=== PATIENT | male | born 1970 | race Caucasian/White ===

== ENCOUNTER 2017-07-02 19:17 | Inpatient (IN) | payer MEDICAID ==
[~2017-07-02] VITALS: Ht 170.2 cm; Wt 81.2 kg
--- NOTE | 2017-07-02 19:19 | NUR ---
PT ALBERTO SWANSONS. TAKEN TO BED 4
--- NOTE | 2017-07-02 19:23 | NUR ---
[place] PD AT BEDSIDE
[2017-07-02 19:44] VITALS: BP 154/108
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
[2017-07-02] MEDS ORDERED: KETOROLAC 60 MG/2 ML VIAL IM ONE (20:30)
--- NOTE | 2017-07-02 20:48 | NUR ---
IM MEDS GIVEN-NADR AT THIS TIME
[2017-07-02 21:13] LABS: BASOPHILS # (AUTO) 0.2 K/uL (0.00-0.22); BASOPHILS % (AUTO) 1.2 % (0.0-2.0); EOSINOPHILS % (AUTO) 0.1 % (0.0-4.0); HEMATOCRIT 40.7 % (36-52); HEMOGLOBIN 13.7 g/dL (12.0-18.0); LYMPHOCYTES % (AUTO) 17.2 % (20.5-51.1); MEAN CORPUSCULAR HEMOGLOBIN 29 pg (27-31); MEAN CORPUSCULAR HGB CONC 34 g/dL (33-37); MEAN CORPUSCULAR VOLUME 86.7 fL (80-94); MONOCYTES # (AUTO) 2.3 K/uL (0.8-1.0); NEUTROPHILS # (AUTO) 11.9 K/uL (1.8-7.7); NEUTROPHILS % (AUTO) 68.5 % (42.2-75.2); PLATELET COUNT (AUTO) 277 K/uL (140-450); RED CELL DISTRIBUTION WIDTH 13.9 % (11.6-13.7); WHITE BLOOD COUNT (AUTO) 17.4 K/uL (4.8-10.8)
[2017-07-02 21:24] LABS: ANION GAP 18.3 (8-16); CARBON DIOXIDE 21.8 mmol/L (21-32); POTASSIUM 3.1 mmol/L (3.5-5.1)
[2017-07-02 21:30] LABS: ALBUMIN 4.3 g/dL (3.4-5.0); TOTAL BILIRUBIN 1.1 mg/dL (0.0-1.0)
[2017-07-02 21:32] LABS: SALICYLATE < 2.8 mg/dL (2.8-20.0)
[2017-07-02 21:38] LABS: BARBITURATE, URINE NEG. ng/ml (NEG <=200); BENZODIAZEPINE, URINE NEG. ng/mL (NEG <=200); CANNABINOID, URINE POS. ng/mL (NEG <=50); COCAINE, URINE NEG. ng/mL (NEG <=300); OPIATE, URINE NEG. ng/mL (NEG <=2000); PHENCYCLIDINE SCREEN,URINE NEG. ng/mL (NEG <=25)
[2017-07-02 21:42] LABS: CREATINE KINASE MB 9.1 ng/mL (0-3.6)
--- NOTE | 2017-07-02 22:00 | NUR ---
Patient appears to be resting comfortably in bed. Vital Signs within normal limits. Respirations even and unlabored.
[2017-07-02] MEDS ORDERED: MORPHINE SULFATE 4 MG/ML SYR IVP ONE (22:50)
[2017-07-02] MEDS ORDERED: ASPIRIN 81 MG TAB.CHEW PO ONE (22:50)
[2017-07-02] MEDS ORDERED: NITROGLYCERIN 2% 1 GM PKT TP ONE (22:50)
[2017-07-02] MEDS ORDERED: ACETAMINOPHEN 325 MG TAB PO PRN (22:55)
[2017-07-02] MEDS ORDERED: ONDANSETRON 4 MG/2 ML VIAL IVP PRN (22:55)
[2017-07-02] MEDS ORDERED: NACL 0.9% 1,000 ML IV ONE (23:00)
--- NOTE | 2017-07-02 23:11 | NUR ---
X-Ray at bedside.
[2017-07-02] MEDS ORDERED: LISINOPRIL 5 MG TAB PO SCH (23:15)
[2017-07-02] MEDS ORDERED: METOPROLOL 25 MG TAB PO SCH (23:15)
[2017-07-02] MEDS ORDERED: ZOLPIDEM 5 MG TAB PO SCH (23:20)
--- NOTE | 2017-07-02 23:33 | NUR ---
nPatient will be admitted to care of DR WHITE. Admited to TELE. Will go to [id number]. Belongings list completed. Report to TARIQ MONZON.
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
[2017-07-02 23:51] LABS: CHOL/HDL RATIO 4.8 (1-4.5); FREE T4 (FREE THYROXINE) 1.07 ng/dL (0.76-1.46); MAGNESIUM 1.9 mg/dL (1.8-2.4); PHOSPHORUS 1.9 mg/dL (2.5-4.9); THYROID STIMULATING HORMONE 0.86 uIU/mL (0.34-3.74)
[2017-07-02 23:53] LABS: PROTHROMBIN TIME 12.1 secs (10.8-13.4)
[2017-07-03] VITALS: BP 131/69
[2017-07-03] MEDS ORDERED: POTASSIUM CHLORIDE 10 MEQ TABER PO SCH
--- NOTE | 2017-07-03 00:30 | NUR ---
CALLED DR SEYMOUR AND ASK IF PT CAN EAT, SAID "YES", SANDWICH AND JUICES PROVIDED, CONSUMED 100%, TOLERATED WELL, AMBULATED INSIDE THE ROOM WITH STEADY GAIT, MONITORED CLOSELY.
[2017-07-03] MEDS ORDERED: SODIUM PHOS / POTASSIUM PHOS 1 PKT PDR PO SCH (01:00)
[2017-07-03] MEDS ORDERED: MORPHINE SULFATE 4 MG/ML SYR IVP SCH (01:00)
[2017-07-03] MEDS ORDERED: ALPRAZolam 0.5 MG TAB PO SCH (01:00)
[2017-07-03] MEDS ORDERED: LORazepam 2 MG/ML VIAL IVP SCH ×2 (01:00→20:15)
[2017-07-03] MEDS ORDERED: QUEtiapine FUMARATE 25 MG TAB PO SCH (01:00)
--- NOTE | 2017-07-03 01:00 | NUR ---
REFUSED SEROQUEL AT THIS TIME, "I DON'T WANT TO SLEEP RIGHT NOW", RISK AND BENEFITS EXPLAINED, PT WANTS ONLY XANAX FOR ANXIETY, MEDICATIONS ADMINISTERED WITH EDUCATION PROVIDED, MONITORED CLOSELY.
[2017-07-03] MEDS ORDERED: ALUMINUM HYD/MAG/SIMETHICONE 30 ML UDC PO PRN (02:25)
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
[2017-07-03 04:00] VITALS: BP 103/64
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
--- NOTE | 2017-07-03 06:10 | NUR ---
PT SLEEPING, NO SIGNS OF DISTRESS, IVF INFUSING WELL, SITTER AT BEDSIDE.
--- NOTE | 2017-07-03 06:48 | NUR ---
CALLED CIARA (PT'S COUSIN) #[phone] AND MADE AWARE THAT PT WAS ADMITTED HERE IN ROOM 109B AND TO NOTIFY HIS MOTHER COOKIE SINCE HE DOESN'T KNOW HER PHONE NUMBER.
[2017-07-03 07:02] LABS: BASOPHILS # (AUTO) 0.3 K/uL (0.00-0.22); BASOPHILS % (AUTO) 1.9 % (0.0-2.0); EOSINOPHILS # (AUTO) 0.3 K/uL (0-0.4); EOSINOPHILS % (AUTO) 1.9 % (0.0-4.0); HEMATOCRIT 37.5 % (36-52); HEMOGLOBIN 13.1 g/dL (12.0-18.0); LYMPHOCYTES # (AUTO) 3.8 K/uL (2.0-11.5); MEAN CORPUSCULAR HEMOGLOBIN 30 pg (27-31); MEAN CORPUSCULAR HGB CONC 35 g/dL (33-37); MEAN CORPUSCULAR VOLUME 86.5 fL (80-94); MONOCYTES # (AUTO) 1.8 K/uL (0.8-1.0); MONOCYTES % (AUTO) 12.5 % (1.7-9.3); NEUTROPHILS # (AUTO) 8.2 K/uL (1.8-7.7); NEUTROPHILS % (AUTO) 57.7 % (42.2-75.2); PLATELET COUNT (AUTO) 215 K/uL (140-450); RED BLOOD CELL COUNT(AUTO) 4.34 MIL/uL (4.20-6.10); RED CELL DISTRIBUTION WIDTH 13.5 % (11.6-13.7); WHITE BLOOD COUNT (AUTO) 14.4 K/uL (4.8-10.8)
[2017-07-03 07:20] LABS: ANION GAP 11.2 (8-16); CARBON DIOXIDE 28.2 mmol/L (21-32); CREATININE 0.9 mg/dL (0.7-1.3); POTASSIUM 3.4 mmol/L (3.5-5.1)
[2017-07-03 07:35] LABS: PHOSPHORUS 3.9 mg/dL (2.5-4.9)
--- NOTE | 2017-07-03 07:40 | NUR ---
PT AWAKE, NO GREGORY OF DISTRESS, REPORT GIVEN TO RN YANELI FOR CONTINUITY OF CARE.
[2017-07-03 08:00] VITALS: BP 125/88
[2017-07-03] MEDS: LISINOPRIL 5 MG TAB PO SCH (10:10)
[2017-07-03] MEDS: FLUoxetine 20 MG CAP PO SCH (10:12)
[2017-07-03] MEDS: ALPRAZolam 0.5 MG TAB PO PRN ×2 (10:15→17:27)
--- NOTE | 2017-07-03 10:15 | NUR ---
PATIENT HAS BEEN SCREENED AND CATEGORIZED MODERATE NUTRITION RISK. PATIENT WILL BE SEEN WITHIN 3-5 DAYS OF ADMISSION. 07/05/17 - 07/07/[address]
[2017-07-03] MEDS: ASPIRIN 81 MG TAB.CHEW PO SCH (10:17)
[2017-07-03] MEDS: ATORVASTATIN 20 MG TAB PO SCH (10:19)
[2017-07-03] MEDS: METOPROLOL 25 MG TAB PO SCH ×2 (10:20→20:07)
[2017-07-03] MEDS: DOCUSATE SODIUM 100 MG GELCAP PO SCH ×2 (10:22→20:07)
--- NOTE | 2017-07-03 11:03 | NUR ---
ADMISSION REVIEW DONE.
[2017-07-03] MEDS: HYDROcodone/APAP 7.5/325 MG 1 TAB PO PRN ×2 (11:35→17:26)
[2017-07-03 12:00] VITALS: BP 115/71
--- NOTE | 2017-07-03 13:00 | NUR ---
Fine Sander Notes: These Marriage Performer attempted to met with Patient for a screen and to discuss and gather patient's information about needed services upon discharge. Patient was not cooperative and refused to meet or provide any of his information.
[2017-07-03 17:00] VITALS: BP 129/88
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
--- NOTE | 2017-07-03 17:45 | NUR ---
These Release And Technical Records Clerk contact [facility] Call [place] [phone]. I spoke to Mary provided Patient's Information and request for Psychiatric bed search. Per Mary requested a clinical packet with Patient's information to be fax to center to initiate the search. Packet was send at the end of the call. These publicity writer got confirmation of been received by call center at about 18:07.
--- NOTE | 2017-07-03 17:46 | NUR ---
RECEIVED A PHONE CALL FROM FLORENCIO, INQUIRED HOW THE PATIENT WAS BROUGHT IN TO ER. CHART REVIEWED AND TOLD HER THAT PT WAS BROUGHT IN BY AMBULANCE. GAVE THE LOCATION WHERE PT WAS PICKED IN 5150 PATIENT, ALSO THE DATE AND TIME.
--- NOTE | 2017-07-03 18:33 | NUR ---
[facility] received referral from Sanam. Faxed referral to the following facilities for review and placement: [facility] Spoke with Maldonado. Faxed to [facility] Spoke with Radha. Faxed referral to [facility]. Spoke with Erika. Faxed referral to
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
--- NOTE | 2017-07-03 19:30 | NUR ---
RECEIVED PT FROM DAY SHIFT NURSE YANELI-BUSINESS SALES CONSULTANT. AOX4, ON ROOM AIR, IV RIGHT HAND #18G, SALINE LOCK. PT RESTING IN BED. NO S/S OF RESPIRATORY DISTRESS OR DISCOMFORT NOTED AT THIS TIME. BED IN LOWEST POSITION. 1:1 SITTER LINER HELPER-LIBCRUZITO. WILL CONTINUE TO MONITOR.
[2017-07-03 20:00] VITALS: BP 126/91
[2017-07-03] MEDS: ZOLPIDEM 5 MG TAB PO SCH (20:05)
--- NOTE | 2017-07-03 20:05 | NUR ---
SCHEDULED MEDICATION GIVEN. PT REFUSED COLACE STATING THAT HE ALREADY WENT TO THE BATHROOM NORMAL AND IS ABOUT TO GO TO THE RESTROOM ONCE MEDICATIONS ARE GIVEN. ALSO REFUSED LOPRESSOR. WILL CONTINUE TO MONITOR. 1:1 SITTER WITH FCO AT THIS TIME.
[2017-07-03] MEDS: QUEtiapine FUMARATE 25 MG TAB PO SCH (20:06)
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
[2017-07-03] MEDS ORDERED: diphenhydrAMINE 50 MG/ML VIAL IVP SCH (20:15)
[2017-07-03] MEDS ORDERED: diphenhydrAMINE 50 MG/ML VIAL ONE (20:18)
[2017-07-03] MEDS ORDERED: LORazepam 2 MG/ML VIAL ONE (20:18)
[2017-07-03] MEDS ORDERED: HALOPERIDOL IM 5 MG/ML VIAL ONE (20:20)
--- NOTE | 2017-07-03 20:31 | NUR ---
DR. SEYMOUR TRANSFERRED PT BACK TO TELEMETRY BECAUSE OF HALDOL ADMINISTRATION. PT SLEEPING IN BED, NO S/S OF RESPIRATORY DISTRESS OR DISCOMFORT. BED IN LOWEST POSITION. 1:1 SITTER CLARITA. WILL CONTINUE TO MONITOR.
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
[2017-07-03] MEDS ORDERED: HALOPERIDOL IM 5 MG/ML VIAL IM SCH (21:00)
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
[2017-07-04] VITALS: BP 114/61
--- NOTE | 2017-07-04 00:05 | NUR ---
PT SLEEPING AT THIS TIME. NO S/S OF RESPIRATORY DISTRESS OR DISCOMFORT NOTED AT THIS TIME. BED IN LOWEST POSITION. 1:1 SITTER BY CLARITA.
--- NOTE | 2017-07-04 00:32 | NUR ---
[facility] CALLED. SPOKE WITH ARBEN, SHE SAID THERE ARE NO BEDS AVAILABLE AT THIS TIME. THEY WILL BE CALLING BACK TODAY OR TOMORROW IF THERE ARE BEDS AVAILABLE.
--- NOTE | 2017-07-04 02:13 | NUR ---
PT SLEEPING AT THIS TIME. 1:1 SITTER BY CLARITA. WILL CONTINUE TO MONITOR.
--- NOTE | 2017-07-04 03:55 | NUR ---
PT SLEEPING AT THIS TIME. 1:1 SITTER BY CLARITA. WILL CONTINUE TO MONITOR.
[2017-07-04 04:00] VITALS: BP 103/62
--- NOTE | 2017-07-04 05:02 | NUR ---
PT SLEEPING AT THIS TIME. WILL CONTINUE TO MONITOR.
--- NOTE | 2017-07-04 07:00 | NUR ---
ENDORSED PT CARE TO DAY SHIFT NURSE DYLAN. PT IN STABLE CONDITION AT THIS TIME.
[2017-07-04 07:01] LABS: BASOPHILS # (AUTO) 0.2 K/uL (0.00-0.22); BASOPHILS % (AUTO) 1.8 % (0.0-2.0); EOSINOPHILS # (AUTO) 0.4 K/uL (0-0.4); EOSINOPHILS % (AUTO) 4.4 % (0.0-4.0); HEMATOCRIT 37.7 % (36-52); HEMOGLOBIN 12.6 g/dL (12.0-18.0); LYMPHOCYTES # (AUTO) 3.4 K/uL (2.0-11.5); LYMPHOCYTES % (AUTO) 39.5 % (20.5-51.1); MEAN CORPUSCULAR HEMOGLOBIN 30 pg (27-31); MEAN CORPUSCULAR HGB CONC 33 g/dL (33-37); MEAN CORPUSCULAR VOLUME 88.4 fL (80-94); MONOCYTES # (AUTO) 0.9 K/uL (0.8-1.0); MONOCYTES % (AUTO) 10.8 % (1.7-9.3); NEUTROPHILS # (AUTO) 3.7 K/uL (1.8-7.7); NEUTROPHILS % (AUTO) 43.5 % (42.2-75.2); PLATELET COUNT (AUTO) 195 K/uL (140-450); RED BLOOD CELL COUNT(AUTO) 4.26 MIL/uL (4.20-6.10); WHITE BLOOD COUNT (AUTO) 8.5 K/uL (4.8-10.8)
--- NOTE | 2017-07-04 07:20 | NUR ---
RECEIVED PT FROM FURNACE MAINTENANCE NURSE. PT IS SLEEPING, ON ROOM AIR, IV RIGHT HAND #18G, SALINE LOCK. NO S/S OF RESPIRATORY DISTRESS OR DISCOMFORT NOTED AT THIS TIME. BED IN LOWEST POSITION. 1:1 SITTER. WILL CONTINUE TO MONITOR.
[2017-07-04 07:26] LABS: ANION GAP 12.3 (8-16); CARBON DIOXIDE 24.1 mmol/L (21-32); CREATININE 0.9 mg/dL (0.7-1.3); POTASSIUM 3.4 mmol/L (3.5-5.1)
[2017-07-04 08:00] VITALS: BP 109/73
--- NOTE | 2017-07-04 08:30 | NUR ---
VITALS TAKEN. PT DENIES PAIN. ON TELE, NO S/S OF ACUTE DISTRESS. PT STARTED EATING BREAKFAST AND WENT TO RESTROOM ONCE.
[2017-07-04 09:08] LABS: CKMB RELATIVE INDEX 0.8 (0.0-2.5); CREATINE KINASE MB 8.2 ng/mL (0-3.6)
[2017-07-04] MEDS: FLUoxetine 20 MG CAP PO SCH (09:31)
[2017-07-04] MEDS: ATORVASTATIN 20 MG TAB PO SCH (09:32)
[2017-07-04] MEDS: DOCUSATE SODIUM 100 MG GELCAP PO SCH ×2 (09:32→21:00)
[2017-07-04] MEDS: ASPIRIN 81 MG TAB.CHEW PO SCH (09:32)
[2017-07-04] MEDS: METOPROLOL 25 MG TAB PO SCH ×2 (09:33→21:14)
--- NOTE | 2017-07-04 09:33 | NUR ---
MEDS GIVEN. PT IS COMPLIANT. DENIES SUICIDAL IDEATION. NO S/S OF ACUTE DISTRESS ON RM AIR.
--- NOTE | 2017-07-04 09:55 | NUR ---
Landing Man Notes: There freelance writer contact Patient's Cousin Any at to discuss and gather Patient's information. I explained to Any about the importance of communicating with patient's mother or family member that can discuss patient's information about needed services upon discharge. Per Any she do not have much information and reported that Patient's mother name is Radha has limited ways to call due to not having a contact number or a cell however; she will contact her and have her call me back. I agreed to have patient's other call me back, I provided my contact number and ended the call.
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
--- NOTE | 2017-07-04 10:46 | NUR ---
CM NOTE INITIAL REVIEW FAXED TO [facility] [phone] PH# [phone] AND TO [facility] [phone] PH# [phone] [address]
[2017-07-04] MEDS ORDERED: NACL 0.9% 1,000 ML IV SCH (11:05)
[2017-07-04] MEDS ORDERED: POTASSIUM CHLORIDE 20% 40 MEQ/15 ML UDC PO SCH (11:30)
[2017-07-04] MEDS: ALPRAZolam 0.5 MG TAB PO PRN (11:53)
[2017-07-04 12:00] VITALS: BP 95/61
--- NOTE | 2017-07-04 13:55 | NUR ---
I Contacted back Officer James from [place] Probation Department to inform him that [facility] Behavioral Health Call Center continues to be working on finding a Psychiatric facility Bed Placement however; it is imperative [facility] gets assisted with his Probation department services/social sciences instructor on finding an appropriate placement for patient before his 5150 hold expires or to discuss for alternative plans for patient in case a Psych placement it is not found due to the complex case and patient's needs and violent behaviors that [facility] it is not the level of care patient requires. Officer James agreed and stated that he is discussing with his correction officer supervisor in detail about what is the plan for patient and is working on documentation and possible court orders to see where patient will go in case a Psych unit it is not found. Per Officer James his department is reconsidering placing patient in custody due to his issues, Hx. Of violent behaviors and needed services with Mental Health. Per Officer James a lock down facility seem the must appropriate placement for Patient and they are discussing their alternatives. Per Officer James he still working on case and will be sending an E-mail with updates to his department and these insurance underwriter. I provided him with my contact information and E-mail address.
[2017-07-04 16:00] VITALS: BP 112/68
--- NOTE | 2017-07-04 19:35 | NUR ---
ENDORSED PT TO FARM MARKETER RN. PT IN STABLE CONDITION, SLEEPING IN BED. BREATHING EVEN AND UNLABORED.
--- NOTE | 2017-07-04 19:36 | NUR ---
PATIENT REPORT RECEIVED FROM MORNING NURSE AT BEDSIDE. PATIENT IS AWAKE, ALERT AND ORIENTED. NO SIGNS AND SYMPTOMS OF DISTRESS NOTED. IV SITE NOTED ON LEFT FOREARM, SALINE LOCKED. SAFETY PRECAUTIONS IN PLACE. 1:1 SITTER PRESENT AT BEDSIDE. WILL CONTINUE TO MONITOR.
[2017-07-04 20:00] VITALS: BP 113/70
[2017-07-04] MEDS: ZOLPIDEM 5 MG TAB PO SCH (21:14)
[2017-07-04] MEDS: QUEtiapine FUMARATE 25 MG TAB PO SCH (21:15)
--- NOTE | 2017-07-04 21:45 | NUR ---
MEDICATION EDUCATION GIVEN, PATIENT VERBALIZED UNDERSTANDING BUT REFUSED COLACE. PATIENT TOOK ALL OTHER DUE MEDS ORDERED. WILL CONTINUE TO MONITOR.
[2017-07-04] MEDS ORDERED: PROMETH/CODEINE 6.25-10MG/5ML 5 ML UDC PO PRN (22:50)
--- NOTE | 2017-07-04 23:23 | NUR ---
PATIENT IS CURRENTLY ASLEEP. NO SIGNS AND SYMPTOMS OF DISTRESS NOTED. BREATHING EVEN AND UNLABORED. 1:1 SITTER PRESENT AT BEDSIDE.
--- NOTE | 2017-07-05 02:12 | NUR ---
CHECKED ON PATIENT. PATIENT IS ASLEEP. NO SIGNS AND SYMPTOMS OF DISTRESS NOTED. BREATHING EVEN AND UNLABORED. WILL CONTINUE TO MONITOR.
[2017-07-05 04:00] VITALS: BP 107/67
--- NOTE | 2017-07-05 04:30 | NUR ---
CHECKED ON PATIENT. PATIENT ASLEEP. NO SIGNS AND SYMPTOMS OF DISTRESS NOTED. 1:1 SITTER AT BEDSIDE. WILL CONTINUE TO MONITOR.
--- NOTE | 2017-07-05 07:27 | NUR ---
PATIENT REPORT GIVEN TO MORNING NURSE AT BEDSIDE FOR CONTINUITY OF CARE. PATIENT IS IN STABLE CONDITION
--- NOTE | 2017-07-05 07:28 | NUR ---
REPORT RECEIVED FROM PRINT PRODUCTION ASSOCIATE, PT SLEEPING QUIETLY IN NAD, RESP EVEN UNLABORED, SKIN WARM DRY COLOR WNL, AROUSES EASILY, DENIES PAIN OR DISCOMFORT, PLAN OF CARE REVIEWED, ALL SAFETY MEASURES IN PLACE, WILL CONTINUE TO MONITOR. Addendum: 07/05/17 at 0728 by Fiona Cole RN PT ON 1:1 WATCH
[2017-07-05 08:00] VITALS: BP 106/71
[2017-07-05] MEDS: LISINOPRIL 5 MG TAB PO SCH (08:42)
[2017-07-05] MEDS: METOPROLOL 25 MG TAB PO SCH (08:43)
[2017-07-05] MEDS: ASPIRIN 81 MG TAB.CHEW PO SCH (08:43)
[2017-07-05] MEDS: FLUoxetine 20 MG CAP PO SCH (08:43)
[2017-07-05] MEDS: ATORVASTATIN 20 MG TAB PO SCH (08:43)
[2017-07-05] MEDS: DOCUSATE SODIUM 100 MG GELCAP PO SCH (08:48)
--- NOTE | 2017-07-05 08:48 | NUR ---
AM MEDS GIVEN, PT JENNI WELL, PT RESTING QUIETLY IN NAD, AROUSED EASILY, PT COOPERATIVE, CALM, PT REMAINS ON 1:1 WATCH, ALL SAFETY MEASURES IN PLACE, WILL CONTINUE TO MONITOR
[2017-07-05] MEDS ORDERED: POTASSIUM CHLORIDE 20% 40 MEQ/15 ML UDC PO SCH (09:00)
--- NOTE | 2017-07-05 09:50 | NUR ---
[facility] these grant writer with Request to join a conference call for discharge planning with treatment team Handling Patient's case. Mrs. Laughlin Provided conference call number [phone] and reference call [phone].
[2017-07-05] MEDS ORDERED: QUET50TA PO (10:10)
[2017-07-05] MEDS ORDERED: FLUO-348 PO (10:10)
[2017-07-05] MEDS ORDERED: ALPR0.5T20 PO (10:10)
[2017-07-05] MEDS: HYDROcodone/APAP 7.5/325 MG 1 TAB PO PRN (11:47)
--- NOTE | 2017-07-05 12:00 | NUR ---
These telegraphic typewriter operator contacted [facility]/Facility director Neal Caban to inform him and confirm that Patient's Clinical Packet has been faxed to his facility . MrMarc Caban agreed and confirmed that fax has been received. I thank him for his information and ended the call.
--- NOTE | 2017-07-05 12:38 | NUR ---
pt's COUSIN TREVOR CALLED ([phone]) CALLED TO FIND OUT HIS PLAN, PER GADIEL, SHE WAS INFORMED THAT PT IS LEAVING HERE TODAY WITH HIS FILM MASKER.
--- NOTE | 2017-07-05 13:00 | NUR ---
DC INSTRUCTION AND RX GIVEN AND EXPLAINED TO PT AND HEAD AND NECK SURGEON KELSY Barker, THEY VERBALIZED FULL UNDERSTANDING, PT ASSISTED WITH CHANGING CLOTHES, IV DC'D, CATH TIP INTACT, BLEEDING CONTROLLED, PT LEFT AMBULATORY IN HAND CUFFS IN PAROLE OFFICERS CUSTODY.
[2017-07-05] MEDS ORDERED: LORazepam 1 MG TAB PO SCH (13:03)
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
--- NOTE | 2017-07-05 13:28 | NUR ---
CM NOTE CONCURRENT REVIEW FAXED TO [facility] [phone] PH# [phone] [facility] [phone] PH# [phone] [address]
--- NOTE | 2017-07-05 13:51 | NUR ---
Lawandagiuliana Truman E-mail me information needed for receiving [facility]/Facility director Neal fax. These medical underwriter provided to Mrs. Laughlin [facility] address, Patient's Unit and room number as well security Manger Anastasia contact Information who will be coordinating with her staff and Probation Department for a safe discharge.
== END 2017-07-05 13:00 | disposition designated cancer center or children's hospital (05) | DRG 756 ==
LOC: MED 19:17 → MTU 22:59
PROVIDERS: ADMIT Family Medicine Sports Medicine; ATTEND Family Medicine Sports Medicine
DX: F41.9 Anxiety disorder, unspecified (principal); R45.851 Suicidal ideations; E83.39 Other disorders of phosphorus metabolism; R07.9 Chest pain, unspecified; F43.9 Reaction to severe stress, unspecified; R00.0 Tachycardia, unspecified; F20.0 Paranoid schizophrenia; E78.5 Hyperlipidemia, unspecified; E87.6 Hypokalemia; F32.9 Major depressive disorder, single episode, unspecified; F15.10 Other stimulant abuse, uncomplicated; F12.10 Cannabis abuse, uncomplicated; D72.829 Elevated white blood cell count, unspecified; R74.0 Nonspecific elevation of levels of transaminase and lactic acid dehydrogenase [LDH]; R79.89 Other specified abnormal findings of blood chemistry; Z91.5 Personal history of self-harm; Z86.19 Personal history of other infectious and parasitic diseases; Z59.0 Homelessness; Z56.0 Unemployment, unspecified
CPT/HCPCS: 36415; 71045; 76705; 80048; 80053; 80305; 82150; 82550; 82553; 83036; 83690; 83735; 83880; 84100; 84439; 84443; 84484; 85025; 85610; 85730; 87081; 93005; 96372; 96374; 99291; G0480; G0482; J1200; J1630; J1885; J2060; J2270; J2405; J7030; Q0092